=== PATIENT | male | born 1970 | race Caucasian/White ===

== ENCOUNTER 2020-11-07 17:14 | Emergency (ER) | payer OTHER, SELFPAY ==
[2020-11-07 17:34] VITALS: BP 132/96; PULSE 76; RESP 14; TEMP 36.3; O2SAT 98
--- NOTE | 2020-11-07 18:17 | PC.NURSE ---
pt up to desk, pt states he is not waiting any longer and is going somewhere else. tried to talk to pt and pt walked out of department.
== END 2020-11-07 18:19 | disposition left against medical advice (07) ==
LOC: CHSED 17:17
PROVIDERS: Emergency Provider Emergency Medicine
DX: Z04.9 Encounter for examination and observation for unspecified reason (principal)
CPT/HCPCS: 99199

== ENCOUNTER 2021-02-04 16:27 | Emergency (ER) | payer OTHER, SELFPAY ==
--- NOTE | ~2021-02-04 | XR_ITS ---
XR lumbar spine 2-3V DATE: 02/04/2021 16:56 INDICATION: Sudden back pain on bending/lifting TECHNIQUE: AP, lateral, coned lateral lumbosacral views COMPARISON: None FINDINGS: No fracture, spondylolisthesis or bone destruction. The included lower thoracic and lumbar pedicles are intact. There is minimal degenerative spurring of the lumbar spine. Lumbar and lumbosacral interspaces appear well preserved. The sacroiliac joints are intact. There is calcification of the abdominal aorta and iliac arteries; no apparent abdominal aortic aneury sm. IMPRESSION: Mild degenerative change of lumbar spine Reviewed, dictated and finalized at location A.
[2021-02-04 16:30] VITALS: BP 190/108; PULSE 80; RESP 20; TEMP 36.6; O2SAT 100
--- NOTE | 2021-02-04 16:38 | ED.BACK ---
HPI - Back Pain/Injury General Chief Complaint: Back Pain/Injury Stated Complaint: backache pain Time Seen by Provider: 02/04/21 16:38 Source: patient Mode of arrival: ambulatory Limitations: no limitations History of Present Illness HPI Narrative: 50-year-old man with a history of 3 cervical spine surgeries and 1 lumbar spine surgery comes in today complaining of sudden onset low back pain that occurred while he was bending over lifting a box. Patient states that the pain is on both sides and radiates to his buttocks and hips. He denies any incontinence, numbness, weakness, or falls. MD elicited complaint: back injury Pertinent past history: prior back pain and back surgery Onset (ago): hour(s) Timing: constant Severity: severe Similar Symptoms Previously: Yes Quality: sharp and aching Location: lumbar spine Radiation: buttocks Exacerbating factors: movement Relieving factors: other (Rest/position) Context: while lifting, turning/twisting and bending Associated symptoms: denies other symptoms Work related injury: No Related Data Home Medications Medication Instructions Recorded Confirmed lisinopril 10 mg PO DAILY 11/07/20 02/04/21 cyclobenzaprine 10 mg PO TID PRN 02/04/21 02/04/21 gabapentin [Neurontin] 300 mg PO BID 02/04/21 02/04/21 Allergies Allergy/AdvReac Type Severity Reaction Status Date / Time No Known Allergies Allergy Unknown Verified 02/04/21 16:39 Review of Systems Review of Systems: All systems reviewed & are unremarkable except as noted in HPI and below Constitutional: Constitutional: Denies chills and Denies fever(s) Cardiovascular: Cardiovascular: Denies chest pain and Denies radiating jaw, neck or arm pain Respiratory: Respiratory: Denies cough and Denies dyspnea Gastrointestinal: Gastrointestinal: Denies abdominal pain, Denies nausea and Denies vomiting Genitourinary: Genitourinary: Denies dysuria, Denies urinary frequency and Denies urinary incontinence Musculoskeletal: Musculoskeletal: Reports back pain, Denies arthralgias, Denies joint swelling and Denies muscle cramps Integumentary/Breasts: Skin/Breast: Denies pruritus, Denies erythema and Denies rash Neurologic: Denies focal weakness, Denies numbness and Denies weakness PMFSH Past Medical History Medical History (Updated 02/04/21 @ 16:50 by Pablo Waterman MD) Hypertension Surgical History Surgical History (Updated 02/04/21 @ 16:48 by Pablo Waterman MD) H/O cervical spine surgery X3 H/O lumbosacral spine surgery Social History Social History (Updated 02/04/21 @ 16:48 by Pablo Waterman MD) Smoking status: Current every day smoker Living arrangements: with family Exam Const: General: healthy appearing and alert Orientation/consciousness: patient oriented x3 Limitations: no limitations Other: Moderate acute distress. Resp: Effort & Inspection: normal respiratory effort and not labored Auscultation: clear to auscultation bilaterally, no rales, no rhonchi and no wheezes Cardio: Rate: regular rate Rhythm: regular rhythm Heart sounds: no murmurs Back/Spine/Pelvis: Other: No tenderness to palpation of the paraspinal or midline thoracic and lumbar spines. No swelling, erythema, rash or abnormal contour. Skin: General skin exam: normal color, no jaundice and no pallor Rashes: no rashes Neuro: General: patient oriented x3, moves all extremities, no focal motor deficits and CN's II-XI intact bilaterally Speech: normal speech Gait exam (Neuro): Normal gait present Extrem: General: normal to inspection and no clubbing, cyanosis or edema Psych: Appearance: grossly normal and well kempt Mental Status: mental status grossly normal Affect: normal affect Attitude: cooperative Thought content: Yes Normal thought content present Discharge Plan Discharge Clinical Impression: Strain of lumbar region Qualifiers: Encounter type: initial encounter Qualified Code(s): S39.012A - Strain of muscle, fascia
[2021-02-04] MEDS: HYDROcodone/acetaminophen (*CRX) 5-325 MG TABLET 1 TAB PO (17:15)
[2021-02-04 17:17] VITALS: BP 174/102; PULSE 87; RESP 16; TEMP 36.6; O2SAT 98
== END 2021-02-04 17:23 | disposition home or self-care (01) ==
PROVIDERS: Emergency Provider Emergency Medicine
DX: S39.012A Strain of muscle, fascia and tendon of lower back, initial encounter (principal); X50.9XXA Other and unspecified overexertion or strenuous movements or postures, initial encounter
CPT/HCPCS: 72100; 99283; A9270

== ENCOUNTER 2023-05-10 07:46 | Outpatient (CLI) | payer OTHER, SELFPAY ==
--- NOTE | ~2023-05-10 | XR_ITS ---
XR_CERV2-3V_CR 05/10/2023 08:18 Indication: Chronic neck pain Procedure: 3 view cervical spine Comparison: No prior studies for comparison. Findings: Status post anterior cervical fusion and discectomy at C5-6. No acute fracture or traumatic malalignment. No prevertebral soft tissue abnormality. There is disc narrowing at C3-4 and C6-7. Impression: 1: Mild cervical spondylosis with fusion at C5-6. Reviewed, dictated and finalized at location B. LER HAND Impression: 1: Mild cervical spondylosis with fusion at C5-6.
--- NOTE | ~2023-05-10 | CT_ITS ---
CT Scan of the Chest without Contrast: Clinical Indication: Lung cancer screening, personal history of nicotine dependence Technique: Contiguous sections were acquired throughout the chest without intravenous contrast. Dose reduction technique was used on this scan by utilizing automated exposure control and iterative recon struction technique. The dose-length product (DLP) was 150.12 mGy-cm. Findings: There is no evidence of any significant mediastinal, hilar or axillary lymphadenopathy. The mediastin al soft tissues appear normal. There is no evidence of pleural or pericardial effusion. The lungs are clear. No pulmonary nodules or infiltrates are noted. Images through the upper abdomen reveal diffuse fatty infiltration of the liver. Impression: Lung RADS 1: Negative. 12 month follow-up screening CT advised. Diffuse fatty infiltration of the liver. Reviewed, dictated and finalized at location . O NEWS ANCHOR Impression: Lung RADS 1: Negative. 12 month follow-up screening CT advised. Diffuse fatty infiltration of the liver.
--- NOTE | ~2023-05-10 | XR_ITS ---
EXAMINATION: XR lumbar spine 2-3V DATE: 05/10/2023 08:18 INDICATION: Chronic low back pain TECHNIQUE: Anteroposterior and lateral views of the lumbar spine, and cone-down lateral view of the l umbosacral junction were obtained. COMPARISON: 02/04/2021 FINDINGS: Alignment is normal. Vertebral body heights are normal. Mild disc height loss at L4-L5. Mild osteoart hritis at the lower lumbar facet joints. Mild osteoarthritis at the right sacroiliac joint. Atheroscl erotic calcification is at the abdominal aorta and common iliac arteries. IMPRESSION: 1. Mild lower lumbar spondylosis. Reviewed, dictated and finalized at location A. NOMETER TESTER
[2023-05-10 07:59] LABS: Basophils Absolute Auto 0.06 K/mm3 (0.00-0.10); Basophils Percent Auto 0.7 % (0.0-1.0); Eosinophils Percent Auto 3.4 % (1.0-6.0); Hematocrit 43.2 % (40.0-54.0); Immature Granulocyte Absolute 0.04 K/mm3 (0.00-0.00); Immature Granulocyte Percent A 0.4 % (0.0-0.0); Lymphocytes Absolute Auto 1.98 K/mm3 (1.10-4.50); Lymphocytes Percent Auto 22.2 % (18.0-42.0); Mean Corpuscular HGB Conc 34.7 g/dL (32.0-36.0); Mean Corpuscular Volume 100.9 fL (78.0-102.0); Mean Platelet Volume 10.2 fl (8.7-11.0); Monocytes Absolute Auto 0.87 K/mm3 (0.10-0.90); Monocytes Percent Auto 9.7 % (2.0-11.0); Neutrophils Absolute Auto 5.7 K/mm3 (1.7-7.2); Neutrophils Percent Auto 63.6 % (50.0-70.0); Platelet Count Result 151 K/mm3 (150-420); Red Blood Count 4.28 M/mm3 (4.70-6.10); Red Cell Distribution Width 12.2 % (11.6-14.4); White Blood Count 8.9 K/mm3 (4.8-10.8)
[2023-05-10 08:20] LABS: Appearance Urine Clear (Clear); Bilirubin Urine Negative (Negative); Blood Urine Negative (Negative); Color Urine Yellow (Yellow); Glucose Urine UA Negative (Negative); Ketones Urine Negative (Negative); Leukocyte Esterase Ur Negative (Negative); Nitrate Urine Negative (Negative); Protein Urine Negative (Negative); Urobilinogen Urine 0.2 mg/dL (0.2-1.0)
[2023-05-10 08:25] LABS: Add Urine Microscopic? NO
[2023-05-10 08:35] LABS: Alanine Aminotransferase 76 U/L (16-63); Albumin Level 3.4 g/dL (3.4-5.0); Alkaline Phosphatase 75 U/L (46-116); Anion Gap 9 mmol/L (8-16); Aspartate Amino Transferase 58 U/L (15-37); Bilirubin,Total 0.5 mg/dL (0.00-1.00); Blood Urea Nitrogen 4 mg/dL (7-18); Calcium 8.8 mg/dL (8.5-10.1); Carbon Dioxide 28 mmol/L (21-32); Chloride 103 mmol/L (98-108); Cholesterol 269 mg/dL (0-200); Estimated Glomerular Filt Rate > 60; Glucose 128 mg/dL (70-99); HDL Direct 61 mg/dL (40-60); LDL Cholesterol Calculated 145 mg/dL (<130); Osmolality Calculated 288 mOsm/kg (285-295); Potassium 4.4 mmol/L (3.5-5.1); Prostate Specific Antigen 0.6 ng/mL (< OR = 4.0); Sodium 140 mmol/L (136-145); Thyroid Stimulating Hormone 1.79 uIU/mL (0.36-3.74); Triglycerides 313 mg/dL (0-150)
[2023-05-10 13:30] LABS: Hemoglobin A1C 5.3 % (<5.7)
[2023-05-13 19:32] LABS: Hepatitis A Antibody IgM Nonreactive; Hepatitis B Core Antibody Nonreactive (Nonreactive); Hepatitis B Surface Antigen Nonreactive (Nonreactive); Hepatitis C Virus Antibody Nonreactive
== END 2023-05-10 07:47 | disposition home or self-care (01) ==
LOC: CHSIMG 07:47
PROVIDERS: PCP Internal Medicine; Visit Provider Internal Medicine
DX: Z00.00 Encounter for general adult medical examination without abnormal findings (principal); I10 Essential (primary) hypertension; M54.50 Low back pain, unspecified; M54.2 Cervicalgia; Z12.2 Encounter for screening for malignant neoplasm of respiratory organs; Z87.891 Personal history of nicotine dependence; R73.09 Other abnormal glucose; R94.5 Abnormal results of liver function studies; M43.06 Spondylolysis, lumbar region; M43.02 Spondylolysis, cervical region; K76.0 Fatty (change of) liver, not elsewhere classified
CPT/HCPCS: 36415; 71271; 72040; 72100; 80053; 80061; 80074; 81003; 83036; 84153; 84443; 85025; G0103

== ENCOUNTER 2023-05-16 12:10 | Outpatient (CLI) | payer OTHER, SELFPAY ==
--- NOTE | ~2023-05-16 | US_ITS ---
EXAMINATION: US arterial ankle brachial ind DATE: 05/16/2023 12:40 INDICATION: Peripheral arterial occlusive disease TECHNIQUE: Segmental pressures and plethysmographic and Doppler waveforms of the brachial and lower e xtremity arteries were obtained. COMPARISON: None. FINDINGS: Right and left brachial artery pressures of 175 mm Hg and 184 mm Hg, respectively, are concordant (no rmal difference <= 30 mmHg). The right ankle-brachial index (ISAAC) is 1.20 (normal >= 0.9-1.0). The right great toe-brachial index (TBI) is 0.92 (normal >= 0.65). Arterial Doppler waveforms are biphasic with brisk systolic upstrokes at both right posterior tibial and dorsalis pedis arteries. The left ISAAC is 0.67. The left TBI is 0.58. Arterial Doppler waveforms are monophasic with brisk syst olic upstrokes at both left posterior tibial and dorsalis pedis arteries. IMPRESSION: 1. Arterial occlusive disease to left lower limb with moderately decreased left ISAAC and mildly decrea sed left TBI. 2. No significant arterial occlusive disease to the right lower limb with normal right ISAAC and TBI. Reviewed, dictated and finalized at location A. BORER IMPRESSION: 1. Arterial occlusive disease to left lower limb with moderately decreased left ISAAC and mildly decreased left TBI. 2. No significant arterial occlusive disease to the right lower limb with horacio l right ISAAC and TBI.
== END 2023-05-16 12:11 | disposition home or self-care (01) ==
PROVIDERS: PCP Internal Medicine; Visit Provider Internal Medicine
DX: I73.9 Peripheral vascular disease, unspecified (principal)
CPT/HCPCS: 93922

== ENCOUNTER 2023-05-20 07:53 | Outpatient (CLI) | payer OTHER, SELFPAY ==
--- NOTE | ~2023-05-20 | US_ITS ---
EXAMINATION: US right upper quadrant DATE: 05/20/2023 08:13 INDICATION: ABNORMAL LIVER ENZYMES TECHNIQUE: Multiple grayscale and Doppler ultrasound images of the right upper quadrant were obtained . COMPARISON: CT lung screening 05/10/2023. FINDINGS: The pancreas is obscured. Liver is enlarged and diffusely echogenic. No surface nodularity. Normal hepatopetal flow in the main portal vein. The gallbladder is normal with no abnormal wall thi ckening, pericholecystic fluid or stones. The common bile duct measures 8 mm. There was no sonographi c Barrett sign. IMPRESSION: Hepatomegaly. Echogenic liver, most commonly due to steatosis but also can be seen with hepatitis and fibrosis. Jenniffer or CT findings consistent with steatosis. Dilated common bile duct, no obstructing stone or mass detected. Consider MRCP for further evaluation . Reviewed, dictated and finalized at location K. ENTICE PAINTER HAND IMPRESSION: Hepatomegaly. Echogenic liver, most commonly due to steatosis but also can be seen with hepat itis and fibrosis. Prior CT findings consistent with steatosis. Dilated common bile duct, no obstructing stone or mass detected. Consider MRCP for further evaluation.
== END 2023-05-20 07:54 | disposition home or self-care (01) ==
LOC: CHSIMG 07:55
PROVIDERS: PCP Internal Medicine; Visit Provider Internal Medicine
DX: R94.5 Abnormal results of liver function studies (principal); R16.0 Hepatomegaly, not elsewhere classified
CPT/HCPCS: 76705

== ENCOUNTER 2023-06-06 11:53 | Outpatient (CLI) | payer OTHER, SELFPAY ==
--- NOTE | ~2023-06-06 | US_ITS ---
EXAMINATION: US venous doppler [facility] DATE: 06/06/2023 12:38 INDICATION: Asymmetric lower limb swelling, right greater than left. TECHNIQUE: Grayscale ultrasound images without and with compression and Doppler ultrasound images of the bilateral lower extremity veins were obtained. COMPARISON: None. FINDINGS: The visualized portions of right common femoral vein, profunda (deep) femoral vein, femoral vein, pop liteal vein, posterior tibial veins, peroneal veins, gastrocnemius vein and greater saphenous vein ou tflow are patent. A few normal-sized lymph node seen at the right inguinal region. The visualized portions of left common femoral vein, profunda femoral vein, femoral vein, popliteal v ein, posterior tibial veins, peroneal veins, gastrocnemius vein and greater saphenous vein outflow ar e patent. IMPRESSION: 1. No deep venous thrombosis in either lower limb. Reviewed, dictated and finalized at location A. ER SEALER
== END 2023-06-06 11:54 | disposition home or self-care (01) ==
LOC: CHSIMG 11:55
PROVIDERS: PCP Internal Medicine; Visit Provider Internal Medicine
DX: R06.9 Unspecified abnormalities of breathing (principal)
CPT/HCPCS: 93970

== ENCOUNTER 2023-07-24 08:30 | Outpatient (CLI) | payer OTHER, SELFPAY ==
[2023-07-24 09:03] LABS: Appearance Urine Clear (Clear); Bilirubin Urine Negative (Negative); Blood Urine Negative (Negative); Color Urine Light Yellow (Yellow); Glucose Urine UA Negative (Negative); Ketones Urine Negative (Negative); Leukocyte Esterase Ur Negative (Negative); Nitrate Urine Negative (Negative); Protein Urine Negative (Negative); Specific Grav Ur <= 1.005 (1.010-1.020); Urobilinogen Urine 0.2 mg/dL (0.2-1.0); pH Urine 5.5 (5.0-8.0)
[2023-07-24 10:25] LABS: Add Urine Microscopic? NO
[2023-07-24 15:33] LABS: Alanine Aminotransferase 119 U/L (16-63); Albumin Level 3.3 g/dL (3.4-5.0); Alkaline Phosphatase 178 U/L (46-116); Anion Gap 13 mmol/L (4-12); Aspartate Amino Transferase 111 U/L (15-37); Bilirubin,Total 0.5 mg/dL (0.00-1.00); Blood Urea Nitrogen 6 mg/dL (7-18); Calcium 9.2 mg/dL (8.5-10.1); Carbon Dioxide 26 mmol/L (21-32); Chloride 92 mmol/L (98-108); Estimated Glomerular Filt Rate > 60; Glucose 138 mg/dL (70-99); Magnesium 1.3 mg/dL (1.8-2.4); NT Pro B Type Natriuretic Pept 24 pg/mL (0-125); Osmolality Calculated 271 mOsm/kg (285-295); Potassium 3.5 mmol/L (3.5-5.1); Sodium 131 mmol/L (136-145); Total Protein 8.7 g/dL (6.4-8.2)
== END 2023-07-24 08:31 | disposition home or self-care (01) ==
LOC: CHSLAB 08:32
PROVIDERS: PCP Internal Medicine; Visit Provider Internal Medicine
DX: I10 Essential (primary) hypertension (principal); R60.9 Edema, unspecified
CPT/HCPCS: 36415; 80053; 81003; 83735; 83880

== ENCOUNTER 2023-11-01 07:17 | Outpatient (CLI) | payer OTHER, SELFPAY ==
--- NOTE | ~2023-11-01 | CT_ITS ---
CT of the Abdomen: Indication: Abdominal pain, ventral hernia Technique: 2.5 mm axial scans were obtained through the abdomen following intravenous administration of 100 cc of Omnipaque 350. Dose reduction technique was used on this scan by utilizing automated ex posure control and iterative reconstruction technique. The dose-length product (DLP) was 763.25 mGy-c m. Findings: Scans through the lung bases are unremarkable. There is diffuse hepatic steatosis. Liver measures 24.5 cm in length. The spleen, pancreas, gallbladd er, adrenals and kidneys are within normal limits. There are atherosclerotic calcifications of the ao rta an iliac arteries, with probable severe stenosis of the left common iliac artery. No lymphadenop athy. Probable tiny ventral fat-containing umbilical hernia. Visually bowel loops are unremarkable. No asci marisol. Impression: Probable tiny fat-containing umbilical hernia. Diffuse hepatic steatosis, with associated hepatomegaly. Severe atherosclerotic disease with probable severe stenosis of the left common iliac artery. Reviewed, dictated and finalized at location . Impression: Probable tiny fat-containing umbilical hernia. Diffuse hepatic steatosis, with associated hepatomegaly. Severe atherosclerotic disease with probable severe stenosis of the left common iliac artery.
== END 2023-11-01 07:18 | disposition home or self-care (01) ==
LOC: CHSIMG 07:19
PROVIDERS: PCP Internal Medicine
DX: R10.9 Unspecified abdominal pain (principal); K76.0 Fatty (change of) liver, not elsewhere classified; K43.9 Ventral hernia without obstruction or gangrene; I70.0 Atherosclerosis of aorta
CPT/HCPCS: 74160; Q9967

== ENCOUNTER 2023-11-08 07:09 | Outpatient (CLI) | payer OTHER, SELFPAY ==
[2023-11-08 07:45] LABS: Hematocrit 42.8 % (40.0-54.0); Hemoglobin 15.3 g/dL (14.0-18.0); Mean Corpuscular HGB Conc 35.7 g/dL (32-36); Mean Corpuscular Hemoglobin 35.9 pg (27.0-31.0); Mean Corpuscular Volume 100.5 fL (78.0-102.0); Mean Platelet Volume 10.6 fl (8.7-11.0); Platelet Count Result 146 K/mm3 (150-420); Red Blood Count 4.26 M/mm3 (4.70-6.10); Red Cell Distribution Width 11.9 % (11.6-14.4)
[2023-11-08 08:14] LABS: Alanine Aminotransferase 56 U/L (16-63); Albumin Level 3.5 g/dL (3.4-5.0); Alkaline Phosphatase 131 U/L (46-116); Anion Gap 11 mmol/L (4-12); Aspartate Amino Transferase 65 U/L (15-37); Bilirubin,Total 0.7 mg/dL (0.00-1.00); Blood Urea Nitrogen 6 mg/dL (7-18); Calcium 9.2 mg/dL (8.5-10.1); Carbon Dioxide 27 mmol/L (21-32); Chloride 97 mmol/L (98-108); Estimated Glomerular Filt Rate > 60; Glucose 116 mg/dL (70-99); Lipase 74 U/L (16-77); Osmolality Calculated 278 mOsm/kg (285-295); Potassium 4.1 mmol/L (3.5-5.1); Sodium 135 mmol/L (136-145)
[2023-11-11 11:03] LABS: Alpha-1-Antitrypsin, QN 222 mg/dL (83-199); Ceruloplasmin 28 mg/dL (14-30)
[2023-11-19 21:20] LABS: Reference Lab Test Name MITOCHONDRIAL AB RX
== END 2023-11-08 07:10 | disposition home or self-care (01) ==
LOC: CHSLAB 07:13
PROVIDERS: PCP Internal Medicine
DX: R79.89 Other specified abnormal findings of blood chemistry (principal)
CPT/HCPCS: 36415; 80053; 82103; 82390; 83690; 85027; 86038; 86039; 86381

== ENCOUNTER 2023-11-28 07:32 | Outpatient (CLI) | payer OTHER, SELFPAY ==
--- NOTE | ~2023-11-28 | MR_ITS ---
EXAMINATION: MR MRCP DATE: 11/28/2023 09:07 INDICATION: Abdominal pain. TECHNIQUE: Magnetic resonance imaging (MRI) of the abdomen was performed without and with 20 mL Multi Kusum intravenous contrast. Sequences included coronal T2-weighted FS FSE, coronal T2-weighted FSE, a xial T1-weighted LAVA, coronal FS FIESTA, axial dual-echo T1-weighted SPGR, coronal lava-FLEX, sagitt al T2-weighted FSE, axial T2-weighted FSE, and axial DWI. Thick-slab T2-weighted FSE images were obta ined for magnetic resonance cholangiopancreatography (MRCP). Maximum intensity projection 3-D reconst ructions of the volumetric data were created by the technologist. Postcontrast sequences included cor onal LAVA-flex and time course of axial T1-weighted LAVA. COMPARISON: CT abdomen 11/01/2023 FINDINGS: ABDOMEN MRI: There is diffuse hepatic steatosis. The gallbladder, spleen, pancreas, adrenal glands, a nd kidneys are normal. There are no dilated loops of bowel. ABDOMEN MRCP: The common duct is dilated to 10 mm. No choledocholithiasis. IMPRESSION: 1. Diffuse hepatic steatosis. 2. Mildly dilated common duct. No choledocholithiasis. Reviewed, dictated and finalized at location A.
== END 2023-11-28 07:33 | disposition home or self-care (01) ==
PROVIDERS: PCP Internal Medicine
DX: R10.9 Unspecified abdominal pain (principal); K83.8 Other specified diseases of biliary tract; K76.0 Fatty (change of) liver, not elsewhere classified
CPT/HCPCS: 74183; A9577

== ENCOUNTER 2024-09-14 07:55 | Outpatient (CLI) | payer OTHER, SELFPAY ==
--- NOTE | ~2024-09-14 | CT_ITS ---
CT of the Abdomen: Indication: Abdominal pain Technique: 2.5 mm axial scans were obtained through the abdomen following intravenous administration of 100 cc of Omnipaque 350. Dose reduction technique was used on this scan by utilizing automated ex posure control and iterative reconstruction technique. The dose-length product (DLP) was 555.98 mGy-c m. Findings: Scans through the lung bases are unremarkable. There is diffuse hepatic steatosis. Liver is enlarged measuring 22 cm in length. There is diffuse gal lbladder wall thickening. The spleen, pancreas, adrenals and kidneys are within normal limits. There are atherosclerotic calcifications of the aorta. No lymphadenopathy. Visualized bowel loops are unremarkable. No ascites. There are mild hazy infiltrative changes in the retroperitoneum, nonspecific. Impression: Diffuse hepatic steatosis with associated hepatomegaly. Mild gallbladder wall thickening. Correlate clinically for acute cholecystitis. Consider HIDA scan an d/or ultrasound for further evaluation as indicated. Mild infiltrative change in the retroperitoneum, nonspecific. Extensive atherosclerotic disease of the aorta and iliac vessels. Reviewed, dictated and finalized at location . Impression: Diffuse hepatic steatosis with associated hepatomegaly. Mild gallbladder wall thickening. Correlate clinically for acute cholecystitis. Consider HIDA scan and/or ultrasound for further evaluation as indicated. Mild infiltrative change in the retroperitoneum, nonspecific. Extensive atherosclerotic disease of the aorta and iliac vessels.
[2024-09-14 08:33] LABS: Estimated Glomerular Filt Rate > 60
== END 2024-09-14 07:56 | disposition home or self-care (01) ==
PROVIDERS: PCP Internal Medicine
DX: R14.0 Abdominal distension (gaseous) (principal); R10.9 Unspecified abdominal pain; K83.8 Other specified diseases of biliary tract; R79.89 Other specified abnormal findings of blood chemistry; R16.0 Hepatomegaly, not elsewhere classified; K76.0 Fatty (change of) liver, not elsewhere classified; I70.0 Atherosclerosis of aorta
CPT/HCPCS: 74160; Q9967

== ENCOUNTER 2024-09-21 07:49 | Outpatient (CLI) | payer OTHER, SELFPAY ==
--- NOTE | ~2024-09-21 | US_ITS ---
Abdominal Sonogram: Real-time sonographic imaging of the abdomen was performed. Clinical History: Abdominal pain Findings: The liver appears echogenic, with no evidence of mass lesion or bile duct dilatation. Live r measures 20.5 cm in length. Main portal vein demonstrates normal direction of flow. The spleen is u pper limits of normal in size without evidence of focal lesion. The gallbladder is markedly distende d, with mild wall thickening up to 5 mm. No gallstone evident. The common bile duct measures 9 mm. T he visualized pancreas, aorta, and IVC are unremarkable. The right kidney measures 12.2 cm in length and the left kidney measures 13.2 cm. There is no hydronephrosis or renal calculus. Impression: Hepatomegaly with diffuse fatty infiltration of liver. Distended gallbladder with mild wall thickening, but no evidence for cholelithiasis. This is a nonspe cific finding. Reviewed, dictated and finalized at [facility]. Impression: Hepatomegaly with diffuse fatty infiltration of liver. Distended gallbladder with mild wall thickening, but no evidence for cholelithi asis. This is a nonspecific finding.
== END 2024-09-21 07:50 | disposition home or self-care (01) ==
LOC: CHSIMG 07:56
PROVIDERS: PCP Internal Medicine
DX: R14.0 Abdominal distension (gaseous) (principal); R10.9 Unspecified abdominal pain; R79.89 Other specified abnormal findings of blood chemistry; R16.0 Hepatomegaly, not elsewhere classified; K83.8 Other specified diseases of biliary tract; K76.0 Fatty (change of) liver, not elsewhere classified; K82.8 Other specified diseases of gallbladder
CPT/HCPCS: 76700

== ENCOUNTER 2024-11-30 10:16 | Outpatient (CLI) | payer OTHER, SELFPAY ==
--- NOTE | ~2024-11-30 | NM_ITS ---
EXAMINATION: NM_HEPATWP_NM DATE: 11/30/2024 12:54 INDICATION: Abdominal pain. Cholecystitis. Common bile duct dilation. COMPARISON: None. TECHNIQUE: 5.7 mCi Tc-99m mebrofenin (Choletec) was administered intravenously. Scintigraphic images of the abdomen were obtained for one hour. 1.8 mcg sincalide (Kinevac) was administered by slow intr avenous infusion, and imaging was continued for 30 minutes. Gallbladder ejection fraction was calcula itz by the technologist. FINDINGS: There is normal clearance of radiotracer from the blood pool. There is homogeneous tracer uptake by t he liver. Activity progresses to the gallbladder and bowel. The gallbladder ejection fraction (GBEF) is 19% (normal 10-90%, but most patient with gallbladder dysfunction have GBEF < 35% which does over lap with the normal range). IMPRESSION: 1. Gallbladder ejection fraction of 19% is at the lower range of normal. This could be normal but i s also within the range of overlap with gallbladder dysfunction or chronic cholecystitis in the appro priate clinical setting. Reviewed, dictated and finalized at location A. IMPRESSION: 1. Gallbladder ejection fraction of 19% is at the lower range of normal. This could be normal but is also within the range of overlap with gallbladder dysfu nction or chronic cholecystitis in the appropriate clinical setting.
== END 2024-11-30 10:17 | disposition home or self-care (01) ==
LOC: CHSIMG 10:18
PROVIDERS: PCP Internal Medicine
DX: R10.9 Unspecified abdominal pain (principal); K81.9 Cholecystitis, unspecified; K83.8 Other specified diseases of biliary tract
CPT/HCPCS: 78227; A9537; J2805

== ENCOUNTER 2025-01-27 13:02 | Outpatient (CLI) | payer OTHER, SELFPAY ==
--- NOTE | ~2025-01-27 | XR_ITS ---
EXAMINATION: XR chest 2V, 01/27/2025 13:15 CDT HISTORY: PREOP TESTING , EDEMA, DYSPNEA COMPARISON: No comparisons available. Technique: 2 views obtained. Findings: The lungs are clear, no effusion. No pneumothorax. Heart is normal size. Mediastinal and hilar contours are within normal limits. Bony thorax no acute abnormality. Impression: No acute cardiopulmonary abnormality. Reviewed, dictated and finalized at location P. Impression: No acute cardiopulmonary abnormality.
[2025-01-27 13:17] LABS: Add Urine Microscopic? NO; Appearance Urine Clear (Clear); Glucose Urine UA Negative (Negative); Leukocyte Esterase Ur Negative (Negative); Nitrate Urine Negative (Negative); Specific Grav Ur <= 1.005 (1.010-1.020)
[2025-01-27 13:18] LABS: Hematocrit 40.4 % (40.0-54.0); Hemoglobin 14.1 g/dL (14.0-18.0); Immature Platelet Fraction Pct 4.5 % (1.0-7.0); Mean Corpuscular HGB Conc 34.9 g/dL (32-36); Mean Corpuscular Hemoglobin 34.7 pg (27.0-31.0); Mean Corpuscular Volume 99.5 fL (78.0-102.0); Platelet Count Result 138 K/mm3 (150-420); Red Blood Count 4.06 M/mm3 (4.70-6.10); White Blood Count 5.9 K/mm3 (4.8-10.8)
--- NOTE | 2025-01-27 13:18 | ECG_ITS ---
Test Date: 2025-01-27 13:34:14 Measurements Intervals [place] Rate: 68 P: 56 CA: 186 QRS: 73 QRSD: 96 T: 58 QT: 443 QTc: 473 Interpretive Statements SINUS RHYTHM NORMAL ECG No previous ECG available for comparison Electronically Signed On 01-27-2025 14:17:10 CDT by Markell Bonilla D.O.
[2025-01-27 13:46] LABS: INR 1.0; Partial Thromboplastin Time 29.4 Sec (23.9-30.70); Prothrombin Time 10.6 Seconds (9.50-12.1)
[2025-01-27 14:01] LABS: Alanine Aminotransferase 26 U/L (6-50); Albumin Level 4.2 g/dL (3.5-5.1); Alkaline Phosphatase 116 U/L (38-126); Anion Gap 10 mmol/L (4-12); Aspartate Amino Transferase 52 U/L (17-59); Bilirubin,Total 0.5 mg/dL (0.2-1.3); Blood Urea Nitrogen 6 mg/dL (9-20); Calcium 9.6 mg/dL (8.4-10.2); Carbon Dioxide 29 mmol/L (22-30); Chloride 100 mmol/L (98-107); Estimated Glomerular Filt Rate > 60; Glucose 99 mg/dL (65-110); Osmolality Calculated 285 mOsm/kg (285-295); Potassium 4.2 mmol/L (3.4-5.0); Sodium 139 mmol/L (137-145); Total Protein 9.3 g/dL (6.3-8.2)
[2025-01-27 14:10] LABS: NT Pro B Type Natriuretic Pept 27 pg/mL (19.9-100)
[2025-01-27 14:31] LABS: Thyroid Stimulating Hormone 2.280 uIU/mL (0.465-4.680)
== END 2025-01-27 13:03 | disposition home or self-care (01) ==
LOC: CHSLAB 13:04
PROVIDERS: PCP Internal Medicine; Visit Provider Internal Medicine
DX: Z01.818 Encounter for other preprocedural examination (principal); M79.89 Other specified soft tissue disorders; R06.00 Dyspnea, unspecified
CPT/HCPCS: 36415; 71046; 80053; 81003; 83880; 84443; 85027; 85055; 85610; 85730; 93005